=== PATIENT | female | born 1950 | race Asian ===

== ENCOUNTER 2018-08-03 06:36 | Day surgery (SDC) | END 2018-08-03 17:20 | disposition home or self-care (01) ==

== ENCOUNTER 2019-01-13 15:08 | Emergency (ER) | payer MEDICAID ==
[~2019-01-13] VITALS: Ht 162.6 cm; Wt 89.0 kg
[~2019-01-13 15:08] MED LIST: ACET500C5 PO; AMLO5TAB4 PO; ASPI81TA52 PO; ATOR40TA68 PO; FLUT16SP17 NASAL; HYDR25TA6 PO; LORA10TA3 PO; LOSA100T15 PO
[2019-01-13 15:15] VITALS: Ht 162.6 cm; Wt 89.0 kg
[2019-01-13] MEDS ORDERED: EPINEPHrine 1 MG INJ IM STA (15:24)
[2019-01-13] MEDS ORDERED: DIPHENHYDRAMINE 50 MG INJ IV STA (15:24)
[2019-01-13] MEDS ORDERED: FAMOTIDINE 20 MG INJ IV STA (15:24)
[2019-01-13] MEDS ORDERED: BEN25 PO (18:16)
[2019-01-13] MEDS ORDERED: FAMO-96 PO (18:16)
[2019-01-13 19:00] VITALS: BP 140/84; PULSE 80; RESP 18
--- NOTE | 2019-01-14 00:46 | ERD ---
ER Documentation Chief Complaint Chief Complaint took loratadine- feels itchy, swell lips, diff breathing HPI 68-year-old female with a history of hypertension and high cholesterol brought in by her son for itching in her feet and her hands with a feeling of throat and tongue swelling. She denies any shortness of breath. She did not eat any unusual foods today or take any new medications. She has not taking her daily medications today either. She did take Claritin prior to arrival with some improvement of her symptoms. Patient only has a known allergy to iodine- containing products. She denies any other associated symptoms other than generalized weakness at this time. ROS All systems reviewed and are negative except as per history of present illness. Medications Home Meds Active Scripts Famotidine* (Pepcid*) 20 Mg Tablet, 20 MG PO BID for 4 Days, TAB Prov:EMILY VINSON MD 01/13/19 Diphenhydramine Hcl* (Benadryl*) 25 Mg Cap, 25 MG PO Q6 PRN for ITCHING/RASH, #30 TAB Prov:EMILY VINSON MD 01/13/19 Reported Medications Loratadine* (Loratadine*) 10 Mg Tablet, 10 MG PO DAILY, #30 TAB 08/03/18 Fluticasone Propionate* (Fluticasone Propionate* Nasal) 50 Mcg/[place] - 16 Gm [place].susp, 1 SPRAY NASAL DAILY, #1 BOTTLE TO EACH NOSTRIL 08/03/18 Aspirin (Low Dose Aspirin) 81 Mg Tablet.dr, 81 MG PO DAILY, #30 TAB 08/03/18 Atorvastatin* (Atorvastatin*) 40 Mg Tablet, 40 MG PO QHS, #30 TAB 08/03/18 Amlodipine Besylate* (Norvasc*) 5 Mg Tablet, 5 MG PO DAILY, TAB 08/03/18 Hydrochlorothiazide* (Hydrochlorothiazide*) 25 Mg Tab, 25 MG PO DAILY, #30 TAB 08/03/18 Losartan Potassium* (Losartan Potassium*) 100 Mg Tablet, 100 MG PO DAILY, TAB 08/03/18 Discontinued Scripts Acetaminophen* (Tylophen*) 500 Mg Capsule, 1 CAP PO Q6H PRN for PAIN AND OR ELEVATED TEMP, #20 CAP Prov:ANSLEY SHEEHAN PA-C 11/18/18 Allergies Allergies: Coded Allergies: Iodine and Iodide Containing Produc (Verified Allergy, Unknown, RASH, 01/13/19) PMhx/Soc History of Surgery: Yes (L breast Sx) Anesthesia Reaction: No Hx Neurological Disorder: No Hx Respiratory Disorders: No Hx Cardiac Disorders: Yes (htn,hyperlip) Hx Psychiatric Problems: No Hx Miscellaneous Medical Probl: No Hx Alcohol Use: No Hx Substance Use: No Hx Tobacco Use: No Smoking Status: Never smoker FmHx Family History: No diabetes Physical Exam Vitals Vital Signs Date Temp Pulse Resp B/P (MAP) Pulse Ox O2 O2 Flow FiO2 Time Delivery Rate 01/13/19 80 18 140/84 98 Room Air 19:00 (102) 01/13/19 80 18 135/84 99 Room Air 18:30 (101) 01/13/19 98.8 94 17 117/55 92 15:15 (75) Physical Exam Const: No acute distress, nontoxic Head: Atraumatic Eyes: Normal Conjunctiva ENT: No obvious tongue or oropharyngeal swelling. Uvula is midline without edema. No stridor. No drooling. Normal External Ears, Nose and Mouth. Neck: Full range of motion. No meningismus. Resp: Clear to auscultation bilaterally with no wheezing Cardio: Regular rate and rhythm, no murmurs Abd: Soft, non tender, non distended. Normal bowel sounds Skin: Erythema to the hands and feet without urticaria. No petechiae or rashes Back: No midline or flank tenderness Ext: No cyanosis, or edema Neur: Awake and alert Psych: Normal Mood and Affect Results 24 hrs Current Medications Medications Dose Sig/Mick Start Time Status Last (Trade) Ordered Route PRN Stop Time Admin Dose Reason Admin 50 mg ONCE STAT 01/13/19 DC 01/13/19 Diphenhydrami IV 15:24 15:38 ne HCl 01/13/19 15:26 (Benadryl) Epinephrine 0.3 mg ONCE STAT 01/13/19 DC 01/13/19 IM 15:24 15:38 (EPINEPHrine) 01/13/19 15:26 Famotidine 20 mg ONCE STAT 01/13/19 DC 01/13/19 (Pepcid Iv) IV 15:24 15:38 01/13/19 15:26 Procedures/MDM Patients symptoms are consistent with allergic reaction of unknown etiology. There are no signs of anaphylaxis. I do not appreciate any angioedema although the patient felt like there was some swelling in her throat and tongue. I did offer her epinephrine discussing the risks and benefits. She did opt for getting epinephrine. All other appropriate medications were administered inclu ding Benadryl and Pepcid. I do not feel that steroids were indicated.. The patients symptoms have improved and stabilized upon reevaluation. She has remained hemodynamically stable.. Patient is stable for discharge and continued outpatient therapy. Return precautions discussed. Patient's blood pressure was elevated (>120/80) but appears stable without evidence of hypertension emergency or urgency. The patient was counseled about the risks of hypertension and urged to pursue outpatient monitoring and therapy within a week with their primary care physician. Departure Diagnosis: Primary Impression: Allergic reaction Encounter type: initial encounter Qualified Codes: T78.40XA - Allergy, unspecified, initial encounter Condition: Stable Patient Instructions: First Aid: Allergic Reactions Referrals: DOCTOR,NOT ON STAFF Additional Instructions: Return to the ER for any worsening symptoms. EMILY VINSON MD Jan 14, 2019 00:46
== END 2019-01-13 19:16 | disposition home or self-care (01) ==
LOC: E/R 15:08
DX: L29.9 Pruritus, unspecified (principal); T45.0X5A Adverse effect of antiallergic and antiemetic drugs, initial encounter; I10 Essential (primary) hypertension; Z79.82 Long term (current) use of aspirin
CPT/HCPCS: 96372; 96374; 96375; J0171; J1200; Z7502; Z7610

== ENCOUNTER 2019-04-06 21:43 | Emergency (ER) | payer MEDICAID ==
[~2019-04-06] VITALS: Ht 160 cm; Wt 71.4 kg
[~2019-04-06 21:43] MED LIST changes: -ACET500C5 PO; +BEN25 PO; +FAMO-96 PO
[2019-04-06 21:50] VITALS: Ht 160 cm; Wt 71.4 kg
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
[2019-04-06] MEDS ORDERED: morphine 2 MG INJ IV STA (23:14)
[2019-04-06] MEDS ORDERED: ONDANSETRON 4 MG INJ IV STA (23:14)
[2019-04-07] MEDS ORDERED: POTASSIUM CHLORIDE (SR) 20 MEQ TAB PO ONE (01:16)
[2019-04-07] MEDS ORDERED: TRAM50TA2 PO (01:46)
[2019-04-07 02:00] VITALS: BP 149/81; PULSE 81; RESP 18
== END 2019-04-07 02:01 | disposition home or self-care (01) ==
LOC: E/R 21:43
DX: S50.12XA Contusion of left forearm, initial encounter (principal); I10 Essential (primary) hypertension; M79.18 Myalgia, other site; E87.6 Hypokalemia; S80.01XA Contusion of right knee, initial encounter; S80.02XA Contusion of left knee, initial encounter; V43.52XA Car driver injured in collision with other type car in traffic accident, initial encounter; Z79.82 Long term (current) use of aspirin; Z85.3 Personal history of malignant neoplasm of breast
CPT/HCPCS: 36415; 71250; 74176; 80053; 83690; 84484; 85025; 93005; 96374; 96375; J2270; J2405; Z7502; Z7610

== ENCOUNTER 2019-06-16 11:22 | Emergency (ER) | payer MEDICAID ==
[~2019-06-16] VITALS: Wt 70.0 kg
[~2019-06-16 11:22] MED LIST changes: +EPIN0.3P4 INJ; +PRED20TA PO; +TRAM50TA2 PO
[2019-06-16] MEDS ORDERED: DIPHENHYDRAMINE 2.5 MG/ML 5ML CUP PO ONE (12:00)
[2019-06-16] MEDS ORDERED: METHYLPREDNISOLONE 125 MG INJ IM ONE (12:00)
[2019-06-16] MEDS ORDERED: FAMOTIDINE 20 MG TAB PO ONE (12:00)
[2019-06-16 12:29] VITALS: BP 118/75; PULSE 91; RESP 20
[2019-06-16] MEDS ORDERED: ONDANSETRON (ODT) 4 MG TAB ODT STA (12:42)
== END 2019-06-16 13:57 | disposition home or self-care (01) ==
LOC: FTE 11:22
DX: L50.0 Allergic urticaria (principal); I10 Essential (primary) hypertension; Z79.82 Long term (current) use of aspirin; Z85.3 Personal history of malignant neoplasm of breast
CPT/HCPCS: 96372; J2930; Z7502; Z7610